=== PATIENT | male | born 1945 | race Caucasian/White ===

== ENCOUNTER 2017-06-21 12:32 | Inpatient (IN) | payer MEDICARE ==
[~2017-06-21] VITALS: Ht 167.6 cm; Wt 77.1 kg
[2017-06-21 13:03] VITALS: BP 103/60; PULSE 84; RESP 18; TEMP 97.6; O2SAT 98
[2017-06-21 15:00] LABS: AUTOMATED NEUTROPHIL # 8.5 TH/MM3 (1.8-7.7); BASOPHIL % 0.3 % (0.0-2.0); EOSINOPHIL % 0.4 % (0.0-4.0); HEMATOCRIT 39.6 % (39.0-51.0); HEMOGLOBIN 13.3 GM/DL (13.0-17.0); LYMPH % 5.9 % (9.0-44.0); LYMPHOCYTE # 0.6 TH/MM3 (1.0-4.8); MEAN CELL VOLUME 99.8 FL (80.0-100.0); MEAN CORPUSCULAR HEMOGLOBIN 33.5 PG (27.0-34.0); MEAN CORPUSCULAR HGB CONC 33.6 % (32.0-36.0); MEAN PLATELET VOLUME 10.1 FL (7.0-11.0); MONO % 9.6 % (0.0-8.0); NEUT % 83.8 % (16.0-70.0); PLATELET COUNT 190 TH/MM3 (150-450); RED BLOOD COUNT 3.96 MIL/MM3 (4.50-5.90); RED CELL DISTRIBUTION WIDTH 18.1 % (11.6-17.2); WHITE BLOOD COUNT 10.2 TH/MM3 (4.0-11.0)
[2017-06-21 15:15] LABS: INTERNATIONAL NORMALIZED RATIO 1.4 RATIO
[2017-06-21 15:25] LABS: ALT (GPT) 32 U/L (12-78); AST (GOT) 38 U/L (15-37); BICARBONATE 36.2 MEQ/L (21.0-32.0); BLOOD UREA NITROGEN 45 MG/DL (7-18); CALCIUM 9.3 MG/DL (8.5-10.1); CHLORIDE 85 MEQ/L (98-107); CREATININE 1.45 MG/DL (0.60-1.30); GLOMERULAR FILTRATION RATE 48 ML/MIN (>89); GLUCOSE,RANDOM 91 MG/DL (74-106); SODIUM (NA) 134 MEQ/L (136-145)
[2017-06-21 15:27] LABS: ALKALINE PHOSPHATASE 141 U/L (45-117); TOTAL BILIRUBIN ADULT 1.3 MG/DL (0.2-1.0); TOTAL PROTEIN 7.1 GM/DL (6.4-8.2)
[2017-06-21] MEDS ORDERED: FUROSEMIDE 100 MG/10 ML VIAL IV PUSH ONE (16:00)
--- NOTE | 2017-06-21 16:07 | PD ---
HPI Chief Complaint: Edema Time Seen by Provider: 15:43 Travel History International Travel<30 days: No Contact w/Intl Traveler<30days: No Traveled to known affect area: No History of Present Illness HPI 71-year-old male arrives from Dr. Higgins's office. The patient has a history of amyloidosis with cardiac involvement. He is orthopneic. He has dyspnea on exertion. Patient takes 80 mg of Lasix daily. He reports compliance with medication regimen. He has no chest pain or shortness of breath. Today the patient went to see Dr. Burrell for chemotherapy however was unable to participate due to shortness of breath and weakness. [facility] Past Medical History Cardiovascular Problems: Yes Chemotherapy: Yes Social History Tobacco Use: No Allergies-Medications (Allergen,Severity, Reaction): Coded Allergies: No Known Allergies (Unverified , 06/21/17) Review of Systems Except as stated in HPI: all other systems reviewed are Neg General / Constitutional: No: Fever Physical Exam Narrative GENERAL: 71-year-old male pleasant well-nourished well-developed Vital Signs Date Time Temp Pulse Resp B/P (MAP) Pulse Ox O2 Delivery O2 Flow Rate FiO2 06/21/17 16:05 81 06/21/17 13:03 97.6 84 18 103/60 (74) 98 SKIN: Warm and dry. HEAD: Atraumatic. Normocephalic. EYES: Pupils equal and round. No scleral icterus. No injection or drainage. ENT: No nasal bleeding or discharge. Mucous membranes pink and moist. NECK: Trachea midline. No JVD. CARDIOVASCULAR: Regular rate and rhythm. RESPIRATORY: Abdomen is distended however soft and nontender. GASTROINTESTINAL: Soft. No focus of tenderness. MUSCULOSKELETAL: There is left greater than right lower extremity pitting edema. No warmth or induration or erythema. NEUROLOGICAL: Awake and alert. No obvious cranial nerve deficits. Motor grossly within normal limits. Five out of 5 muscle strength in the arms and legs. Normal speech. PSYCHIATRIC: Appropriate mood and affect; insight and judgment normal. Data Data Last Documented VS Vital Signs Date Time Temp Pulse Resp B/P (MAP) Pulse Ox O2 Delivery O2 Flow Rate FiO2 06/21/17 16:05 81 06/21/17 13:03 97.6 18 103/60 (74) 98 Orders Orders Complete Blood Count With Diff (06/21/17 13:05) Comprehensive Metabolic Panel (06/21/17 13:05) Act Partial Throm Time (Ptt) (06/21/17 13:05) Prothrombin Time / Inr (Pt) (06/21/17 13:05) Electrocardiogram (06/21/17 ) B-Type Natriuretic Peptide (06/21/17 15:48) Chest, Single Ap (06/21/17 ) Us Leg Venous Doppler Bilat (06/21/17 ) Furosemide Inj (Lasix Inj) (06/21/17 16:00) Admit Order (Ed Use Only) (06/21/17 ) [employer] Screen Watcher / Telemetry JD.Q8H (06/21/17 16:17) Vital Signs (Adult) Q4H (06/21/17 16:17) Diet Npo (06/21/17 Dinner) Activity Bed Rest (06/21/17 16:17) Activity Oob With Assistance (06/21/17 16:17) Labs Laboratory Tests Test 06/21/17 13:41 06/21/17 16:00 White Blood Count 10.2 TH/MM3 Red Blood Count 3.96 MIL/MM3 Hemoglobin 13.3 GM/DL Hematocrit 39.6 % Mean Corpuscular Volume 99.8 FL Mean Corpuscular Hemoglobin 33.5 PG Mean Corpuscular Hemoglobin Concent 33.6 % Red Cell Distribution Width 18.1 % Platelet Count 190 TH/MM3 Mean Platelet Volume 10.1 FL Neutrophils (%) (Auto) 83.8 % Lymphocytes (%) (Auto) 5.9 % Monocytes (%) (Auto) 9.6 % Eosinophils (%) (Auto) 0.4 % Basophils (%) (Auto) 0.3 % Neutrophils # (Auto) 8.5 TH/MM3 Lymphocytes # (Auto) 0.6 TH/MM3 Monocytes # (Auto) 1.0 TH/MM3 Eosinophils # (Auto) 0.0 TH/MM3 Basophils # (Auto) 0.0 TH/MM3 CBC Comment DIFF FINAL Differential Comment Prothrombin Time 14.0 SEC Prothromb Time International Ratio 1.4 RATIO Activated Partial Thromboplast Time 26.1 SEC Blood Urea Nitrogen 45 MG/DL Creatinine 1.45 MG/DL Random Glucose 91 MG/DL Total Protein 7.1 GM/DL Albumin 4.0 GM/DL Calcium Level 9.3 MG/DL Alkaline Phosphatase 141 U/L Aspartate Amino Transf (AST/SGOT) 38 U/L Alanine Aminotransferase (ALT/SGPT) 32 U/L Total Bilirubin 1.3 MG/DL Sodium Level 134 MEQ/L Potassium Level 3.2 MEQ/L Chloride Level 85 MEQ/L Carbon Dioxide Level 36.2 MEQ/L Anion Gap 13 MEQ/L Estimat Glomerular Filtration Rate 48 ML/MIN B-Type Natriuretic Peptide 3801 PG/ML MDM Medical Decision Making Medical Screen Exam Complete: Yes Emergency Medical Condition: Yes Medical Record Reviewed: Yes Differential Diagnosis Volume overload, edema, renal failure Narrative Course CBC & BMP Diagram 06/21/17 13:41 Total Protein 7.1, Albumin 4.0, Calcium Level 9.3, Alkaline Phosphatase 141 H, Aspartate Amino Transf (AST/SGOT) 38 H, Alanine Aminotransferase (ALT/SGPT) 32, Total Bilirubin 1.3 H 80 mg IV Lasix started here. There is asymmetric edema left lower leg. Venous ultrasound added on. Case discussed with Dr. Hassan. Diagnosis Primary Impression: Cardiac amyloidosis Additional Impressions: Orthopnea Dyspnea on exertion PND (paroxysmal nocturnal dyspnea) Admitting Information Admitting Physician Requests: Admit Warren Bradford MD June 21, 2017 16:07
[2017-06-21] MEDS ORDERED: NALOXONE HCL 0.4 MG/ML AMP IV PUSH PRN (17:00)
[2017-06-21] MEDS ORDERED: MAGNESIUM HYDROXIDE SUSP 30 ML CUP PO PRN (17:00)
[2017-06-21] MEDS ORDERED: BISACODYL 10 MG SUPP RECTAL PRN (17:00)
[2017-06-21] MEDS ORDERED: LACTULOSE SYRUP 20 GM/30 ML CUP PO PRN (17:00)
[2017-06-21] MEDS ORDERED: SODIUM CHLORIDE 0.9% FLUSH 10 ML FLUSH IV FLUSH PRN (17:00)
[2017-06-21] MEDS ORDERED: ACETAMINOPHEN 325 MG TAB PO PRN (17:00)
[2017-06-21] MEDS ORDERED: SENNOSIDES 8.6 MG TAB PO PRN (17:00)
--- NOTE | 2017-06-21 17:10 | RADRPT ---
EXAM DATE/TIME: 06/21/2017 15:52 [facility] COMPARISON: No previous studies available for comparison. INDICATIONS : Short of breath. MEDICAL HISTORY : Amyloidosis. SURGICAL HISTORY : CABG. ENCOUNTER: Initial ACUITY: 1 day PAIN SCORE: 0/10 LOCATION: Bilateral chest FINDINGS: Previous sternotomy. Right effusion with basilar consolidation. Left lung clear. No pneumothorax. CONCLUSION: 1. Previous sternotomy with right basilar atelectasis and right pleural effusion. No prior study for comparison. Lei Glover MD on June 21, 2017 at 17:07 Board Certified Radiologist. This report was verified electronically.
[2017-06-21 17:31] VITALS: BP 119/71; PULSE 73; RESP 18; O2SAT 100
--- NOTE | 2017-06-21 17:46 | HHI.HP ---
[facility] Zulay Zaragoza MD Admission Diagnosis Ascites; Edema; PND/Orthopnea Diagnoses: Chief Complaint: Edema, Increasing SOB Travel History International Travel<30 Days: No Contact w/Intl Traveler <30 Da: No Traveled to Known Affected Are: No History of Present Illness Patient is a 71-year-old male with known primary history of amyloidosis, Aortic valve replacement, HTN, HLD, CHF who came into the hospital as advised by Dr. Galindo secondary to increasing shortness of breath and edema. Patient states that he has noticed that he has increasing bilateral lower extremity edema left greater than the right. States that he has been an ongoing thing of increasing shortness of breath also for the past 2 weeks. Complains of generalized weakness, fatigue. States that his bilateral lower extremity edema usually comes down which is taking medication however this time he states it remains the same. States since September last year he has been going downhill as to his health issue. Patient also complains of abdominal bloating and is more concerned about it compared to his bilateral lower extremity swelling. Otherwise, denies any cough. Denies pain or discomfort, denies chest pain, palpitations, headaches, fevers, chills, nausea, vomiting, diarrhea. Denies any constipation, abdominal cramping, abdominal pain, hematuria, dysuria. Review of Systems Except as stated in HPI: all other systems reviewed are Neg Past Family Social History Past Medical History CAD CVD CHF, systolic Ascites HTN HLD Myeloma II Past Surgical History Cataract removal Coronary stent placement, [address] Christina Bilateral feet surgery Tonsillectomy Aortic valve replacement in 2017, Dr. Matias Grubbs secondary to valvular dysfunction Allergies: Coded Allergies: No Known Allergies (Unverified , 06/21/17) Active Ordered Medications Current Medications Medications (Trade) Dose Ordered Sig/Rupali Route Start Time Stop Time Status Last Admin (NS Flush) 2 ml UNSCH PRN IV FLUSH 06/21/17 17:00 UNV (NS Flush) 2 ml BID IV FLUSH 06/21/17 21:00 UNV (Tylenol) 650 mg Q4H PRN PO 5/10/18 17:00 UNV (Heparin Inj) 5,000 units Q12H SQ 06/21/17 17:00 UNV (Narcan Inj) 0.4 mg UNSCH PRN IV PUSH 06/21/17 17:00 UNV (Jesika-Colace) 1 tab BID PO 06/21/17 21:00 UNV (Milk Of Magnesia Liq) 30 ml Q12H PRN PO 06/21/17 17:00 UNV (Senokot) 17.2 mg Q12H PRN PO 06/21/17 17:00 UNV (Dulcolax Supp) 10 mg DAILY PRN RECTAL 06/21/17 17:00 UNV (Lactulose Liq) 30 ml DAILY PRN PO 06/21/17 17:00 UNV Family History Mother lived to be in in her 90s Father of alcoholism Social History Patient lives by himself. recently . Denies alcohol use Denies tobacco use, former smoker quit about approximately 30 years ago, smoked a pack per day 27 years Denies illicit drug use Physical Exam Vital Signs Vital Signs Date Time Temp Pulse Resp B/P (MAP) Pulse Ox O2 Delivery O2 Flow Rate FiO2 06/21/17 16:05 81 06/21/17 13:03 97.6 84 18 103/60 (74) 98 Physical Exam GENERAL: This is a thin appearing, well-developed patient, in no apparent distress. SKIN: No rashes, ecchymoses or lesions. Cool and dry. HEAD: Atraumatic. Normocephalic. No temporal or scalp tenderness. EYES: Pupils equal round and reactive. Extraocular motions intact. No scleral icterus. No injection or drainage. ENT: Nose without bleeding. Throat without erythema. Uvula midline. Airway patent. NECK: Trachea midline. CARDIOVASCULAR: Regular rate and rhythm with 2/6 murmurs. No gallops, or rubs. RESPIRATORY: Diminished left middle and lower lobe. No wheezes, rales, or rhonchi. GASTROINTESTINAL: Abdomen soft, non-tender, distended -ascites. Bowel sounds active 4. MUSCULOSKELETAL: Extremities without clubbing, cyanosis. Bilateral lower extremity edema +3 left greater than right. NEUROLOGICAL: Awake and alert. Cranial nerves II through XII intact. Motor and sensory grossly within normal limits. Normal speech. Laboratory Laboratory Tests Test 5/10/18 13:41 06/21/17 16:00 White Blood Count 10.2 Red Blood Count 3.96 Hemoglobin 13.3 Hematocrit 39.6 Mean Corpuscular Volume 99.8 Mean Corpuscular Hemoglobin 33.5 Mean Corpuscular Hemoglobin Concent 33.6 Red Cell Distribution Width 18.1 Platelet Count 190 Mean Platelet Volume 10.1 Neutrophils (%) (Auto) 83.8 Lymphocytes (%) (Auto) 5.9 Monocytes (%) (Auto) 9.6 Eosinophils (%) (Auto) 0.4 Basophils (%) (Auto) 0.3 Neutrophils # (Auto) 8.5 Lymphocytes # (Auto) 0.6 Monocytes # (Auto) 1.0 Eosinophils # (Auto) 0.0 Basophils # (Auto) 0.0 CBC Comment DIFF FINAL Differential Comment Prothrombin Time 14.0 Prothromb Time International Ratio 1.4 Activated Partial Thromboplast Time 26.1 Blood Urea Nitrogen 45 Creatinine 1.45 Random Glucose 91 Total Protein 7.1 Albumin 4.0 Calcium Level 9.3 Alkaline Phosphatase 141 Aspartate Amino Transf (AST/SGOT) 38 Alanine Aminotransferase (ALT/SGPT) 32 Total Bilirubin 1.3 Sodium Level 134 Potassium Level 3.2 Chloride Level 85 Carbon Dioxide Level 36.2 Anion Gap 13 Estimat Glomerular Filtration Rate 48 Result Diagram: 06/21/17 1341 06/21/171340 Caprini VTE Risk Assessment Caprini VTE Risk Assessment: Mod/High Risk (score >= 2) Caprini Risk Assessment Model Point Value = 1 Point Value = 2 Point Value = 3 Point Value = 5 Age 41-60 Minor surgery BMI > 25 kg/m2 Swollen legs Varicose veins or History of unexplained or recurrent spontaneous Oral contraceptives or hormone replacement Sepsis (< 1 month) Serious lung disease, including pneumonia (< 1 month) Abnormal pulmonary function Acute myocardial infarction Congestive heart failure (< 1 month) History of inflammatory bowel disease Medical patient at bed rest Age 61-74 Arthroscopic surgery Major open surgery (> 45 min) Laparoscopic surgery (> 45 min) Malignancy Confined to bed (> 72 hours) Immobilizing plaster cast Central venous access Age >= 75 History of VTE Family history of VTE Factor V Leiden Prothrombin [id number] Lupus anticoagulant Anticardiolipin antibodies Elevated serum homocysteine Heparin-induced thrombocytopenia Other congenital or acquired thrombophilia Stroke (< 1 month) Elective arthroplasty Hip, pelvis, or leg fracture Acute spinal cord injury (< 1 month) Prophylaxis Regimen Total Risk Factor Score Risk Level Prophylaxis Regimen 0-1 Low Early ambulation 2 Moderate Order ONE of the following: *Sequential Compression Device (SCD) *Heparin 5000 units SQ BID 3-4 Higher Order ONE of the following medications: *Heparin 5000 units SQ TID *Enoxaparin/Lovenox 40 mg SQ daily (WT < 150 kg, CrCl > 30 mL/min) *Enoxaparin/Lovenox 30 mg SQ daily (WT < 150 kg, CrCl > 10-29 mL/min) *Enoxaparin/Lovenox 30 mg SQ BID (WT < 150 kg, CrCl > 30 mL/min) AND/OR *Sequential Compression Device (SCD) 5 or more Highest Order ONE of the following medications: *Heparin 5000 units SQ TID (Preferred with Epidurals) *Enoxaparin/Lovenox 40 mg SQ daily (WT < 150 kg, CrCl > 30 mL/min) *Enoxaparin/Lovenox 30 mg SQ daily (WT < 150 kg, CrCl > 10-29 mL/min) *Enoxaparin/Lovenox 30 mg SQ BID (WT < 150 kg, CrCl > 30 mL/min) AND *Sequential Compression Device (SCD) Assessment and Plan Problem List: (1) CHF (congestive heart failure) ICD Code: I50.9 - Heart failure, unspecified (2) Cardiac amyloidosis ICD Code: E85.4 - Organ-limited amyloidosis; I43 - Cardiomyopathy in diseases classified elsewhere Status: Acute (3) Dyspnea on exertion ICD Code: R06.09 - Other forms of dyspnea Status: Acute (4) PND (paroxysmal nocturnal dyspnea) ICD Code: R06.00 - Dyspnea, unspecified; I43 - Cardiomyopathy in diseases classified elsewhere Status: Acute (5) Orthopnea ICD Code: R06.01 - Orthopnea Status: Acute Assessment and Plan Patient is a 71-year-old male with known primary history of amyloidosis, Aortic valve replacement, HTN, HLD, CHF who came into the hospital as advised by Dr. Galindo secondary to increasing shortness of breath and edema. Congestive heart failure, systolic With exacerbation History of amyloidosis -Chest x-ray showed right pleural effusion, reviewed by me and Dr. Hassan -BNP 3801 -Increasing shortness of breath and dyspnea on exertion with associated orthopnea -Lasix 80 mg IV given in the ED -We will continue Lasix IV -Plan for thoracentesis -Follow-up labs -Consult cardiology, patient seen Dr. Christina -Last echo possibly done 11/2016 showed EF 47%. Repeat ECHO. -Fluid restriction Hypokalemia, mild Hyponatremia, mild -Monitor labs Acute kidney injury on chronic kidney disease stage III -Baseline1.2-1.3 -Mildly elevated creatinine -Avoid nephrotoxic -Monitor renal indicis Amyloidosis -Patient is under the care of Dr. Galindo, and outpatient -Consult Dr. Higgins if warranted Ascites Abdominal bloating -Hx ascites -Lasix IV, metolazone -May benefit with paracentesis if warranted. -US Abdomen Transaminitis -Possibly drug-induced -Monitor liver enzymes DVT prop heparin SQ Code Status Full Code Discussed Condition With Patient, Dr. Hassan Physician Certification 2 Midnight Certification Type: Admission for Inpatient Services Order for Inpatient Services The services are ordered in accordance with Medicare regulations or non- Medicare payer requirements, as applicable. In the case of services not specified as inpatient-only, they are appropriately provided as inpatient services in accordance with the 2-midnight benchmark. Estimated LOS (days): 2 days is the estimated time the patient will need to remain in the hospital, assuming treatment plan goals are met and no additional complications. Post-Hospital Plan: Home Health Jose Wang June 21, 2017 17:46
--- NOTE | 2017-06-21 17:59 | RADRPT ---
EXAM DATE/TIME: 06/21/2017 17:05 [facility] COMPARISON: No previous studies available for comparison. INDICATIONS : Increasing bilateral lower extremity edema x 2 weeks. MEDICAL HISTORY : Congestive heart failure. Hypertension. Hypercholesterolemia. Amyloidosis. Myeloma II. Ascites. SURGICAL HISTORY : Coronary artery stent.Tonsillectomy. Aortic valve replacement 2017. Cataract removal. ENCOUNTER: Initial ACUITY: 1 week PAIN SCORE: 1/10 LOCATION: Bilateral legs. TECHNIQUE: Venous ultrasound of the left and right leg was performed from the inguinal ligament to the proximal calf. Real-time, color Doppler and spectral tracing, compression and augmentation techniques were us ed. FINDINGS: RIGHT LEG: There is normal compressibility of the deep venous system from the inguinal region to the proximal ca lf. No echogenic clot is seen in the lumen of the common femoral, femoral, popliteal, and posterior tibial veins. There is a normal response of the venous system to proximal and distal augmentation an d respiration. LEFT LEG: There is normal compressibility of the deep venous system from the inguinal region to the proximal ca lf. No echogenic clot is seen in the lumen of the common femoral, femoral, popliteal, and posterior tibial veins. There is a normal response of the venous system to proximal and distal augmentation an d respiration. CONCLUSION: Normal examination. Lei Glover MD on June 21, 2017 at 17:56 Board Certified Radiologist. This report was verified electronically.
[2017-06-21] MEDS: FUROSEMIDE 40 MG/4 ML VIAL IV PUSH SCH (18:00)
[2017-06-21] MEDS ORDERED: POTASSIUM CHLORIDE 20 MEQ CONTROLLED RELEASE TAB PO ONE (18:00)
[2017-06-21] MEDS ORDERED: SACU1TAB PO (18:33)
[2017-06-21] MEDS ORDERED: CARV3.12 PO (18:33)
[2017-06-21] MEDS ORDERED: TORS20TA PO (18:33)
[2017-06-21] MEDS ORDERED: BRIL90TA PO (18:33)
[2017-06-21] MEDS ORDERED: ASPI-516 CHEW (18:33)
[2017-06-21] MEDS ORDERED: POTA10CA PO (18:33)
[2017-06-21] MEDS: DOCUSATE SODIUM 50 MG/SENNA 8.6 MG TAB PO SCH (21:00)
[2017-06-21 21:40] VITALS: PULSE 79
[2017-06-21] MEDS: SODIUM CHLORIDE 0.9% FLUSH 10 ML FLUSH IV FLUSH SCH (21:45)
[2017-06-21] MEDS: HEPARIN SODIUM - SQ 10,000 UNITS/ML VIAL SQ SCH (21:45)
[2017-06-22] VITALS (10 sets, daily range): BP systolic 96–131; BP diastolic 56–73; PULSE 77–93; RESP 16–20; TEMP 96–98.1; O2SAT 94–97
[2017-06-22 07:09] LABS: AUTOMATED NEUTROPHIL # 7.8 TH/MM3 (1.8-7.7); BASOPHIL % 0.5 % (0.0-2.0); EOSINOPHIL # 0.1 TH/MM3 (0-0.4); EOSINOPHIL % 0.6 % (0.0-4.0); HEMATOCRIT 37.8 % (39.0-51.0); HEMOGLOBIN 12.9 GM/DL (13.0-17.0); LYMPH % 6.6 % (9.0-44.0); LYMPHOCYTE # 0.6 TH/MM3 (1.0-4.8); MEAN CELL VOLUME 98.5 FL (80.0-100.0); MEAN CORPUSCULAR HEMOGLOBIN 33.5 PG (27.0-34.0); MEAN PLATELET VOLUME 9.9 FL (7.0-11.0); MONO % 10.1 % (0.0-8.0); NEUT % 82.2 % (16.0-70.0); PLATELET COUNT 199 TH/MM3 (150-450); RED BLOOD COUNT 3.84 MIL/MM3 (4.50-5.90); WHITE BLOOD COUNT 9.5 TH/MM3 (4.0-11.0)
[2017-06-22] MEDS: SODIUM CHLORIDE 0.9% FLUSH 10 ML FLUSH IV FLUSH SCH ×2 (07:21→21:15)
[2017-06-22 07:46] LABS: ALBUMIN 3.4 GM/DL (3.4-5.0); ALKALINE PHOSPHATASE 115 U/L (45-117); ALT (GPT) 26 U/L (12-78); AST (GOT) 35 U/L (15-37); BICARBONATE 37.3 MEQ/L (21.0-32.0); BLOOD UREA NITROGEN 44 MG/DL (7-18); CALCIUM 9.1 MG/DL (8.5-10.1); CHLORIDE 87 MEQ/L (98-107); CREATININE 1.38 MG/DL (0.60-1.30); GLOMERULAR FILTRATION RATE 51 ML/MIN (>89); GLUCOSE,RANDOM 82 MG/DL (74-106); SODIUM (NA) 134 MEQ/L (136-145); TOTAL BILIRUBIN ADULT 1.3 MG/DL (0.2-1.0); TOTAL PROTEIN 6.1 GM/DL (6.4-8.2)
[2017-06-22] MEDS: HEPARIN SODIUM - SQ 10,000 UNITS/ML VIAL SQ SCH ×2 (09:00→21:14)
--- NOTE | 2017-06-22 10:32 | RADRPT ---
EXAM DATE/TIME: 06/22/2017 09:58 [facility] COMPARISON: No previous studies available for comparison. INDICATIONS : S/P Thoracentesis. MEDICAL HISTORY : Amyloidosis. SURGICAL HISTORY : CABG. ENCOUNTER: Subsequent ACUITY: 2 days PAIN SCORE: 0/10 LOCATION: Bilateral chest FINDINGS: Following thoracentesis there is no pneumothorax. Sternal wires from previous bypass noted. Mild co mpensated cardiomegaly. Minimal bibasilar parenchymal changes. CONCLUSION: Status post thoracentesis. No pneumothorax. George Laughlin MD FACR on June 22, 2017 at 10:28 Board Certified Radiologist. This report was verified electronically.
--- NOTE | 2017-06-22 10:50 | RADRPT ---
EXAM DATE/TIME: 06/22/2017 09:51 [facility] COMPARISON: No previous studies available for comparison. INDICATIONS : Increased lab values. MEDICAL HISTORY : CHF. HTN. Amyloidosis. SURGICAL HISTORY : Aortic valve replacement. Bilateral foot surgery. Coronary stent. Tonsillectomy. ENCOUNTER: Initial ACUITY: 1 day PAIN SCORE: 0/10 LOCATION: Bilateral upper quadrant MEASUREMENTS: LIVER: 16.3 cm length COMMON DUCT: 4 mm RIGHT KIDNEY: 10.8 x 5.7 x 5.8 cm SPLEEN: 8.9 cm length FINDINGS: Pancreas not well-visualized. Mild ascites around the liver and spleen. Shadowing gallstone in gallbl adder neck measuring up to 1 cm in diameter. Right kidney unremarkable. CONCLUSION: 1. Gallstone in gallbladder neck measuring up to about a centimeter in diameter. No biliary ductal di latation. Mild ascites. Lei Glover MD on June 22, 2017 at 10:42 Board Certified Radiologist. This report was verified electronically.
--- NOTE | 2017-06-22 11:10 | RADRPT ---
EXAM DATE/TIME: 06/22/2017 08:30 [facility] COMPARISON: No previous studies available for comparison. INDICATIONS : Right pleural effusion. MEDICAL HISTORY : Congestive heart failure. Hypertension. Hypercholesterolemia. Amyloidosis. Coronary artery disease. Cerebrovascular disease. Myeloma II. SURGICAL HISTORY : Tonsillectomy. Coronary artery stent. Aortic valve replacement 2017. Cataract removal. ENCOUNTER: Initial ACUITY: 1 day PAIN SCORE: 2/10 LOCATION: Right chest FLUID: Total volume of 300 cc of cloudy, red fluid was removed. Fluid was sent to lab for ordered studies. TECHNIQUE: 1. Ultrasound guidance for thoracentesis. 2. Thoracentesis. The risks, benefits, and alternatives to ultrasound guided thoracentesis were explained to the patien t in lay simple terms, including the risk of bleeding and infection. Written and verbal informed con sent was obtained. Appropriate area for thoracentesis was marked under ultrasound guidance with the patient in the uprig ht position. Overlying skin was prepped and draped in the usual sterile fashion and with local anest hetic, a dermatotomy was made with an 11 blade scalpel. A 6 [place] thoracentesis catheter was placed in the pleural space and fluid was removed. Catheter was then removed and a sterile dressing applie d. There were no immediate complications. The patient tolerated the procedure well and the left the ultrasound suite in stable condition. Chest radiograph is to be obtained. CONCLUSION: Uncomplicated ultrasound guided thoracentesis. Fluid was sent for ordered studies. George Laughlin MD FACR on June 22, 2017 at 11:06 Board Certified Radiologist. This report was verified electronically.
[2017-06-22] MEDS: FUROSEMIDE 40 MG/4 ML VIAL IV PUSH SCH ×2 (11:35→18:02)
[2017-06-22] MEDS: DOCUSATE SODIUM 50 MG/SENNA 8.6 MG TAB PO SCH ×2 (11:36→21:14)
[2017-06-22] MEDS: METOLAZONE 2.5 MG TAB PO SCH (11:37)
[2017-06-22 11:52] LABS: TOTAL PROTEIN,PLEURAL FLUID 2.2 GM/DL
[2017-06-22] MEDS ORDERED: LIDOCAINE HCL 1% 20 ML VIAL ONE (12:21)
[2017-06-22 12:53] LABS: PLEURAL FLUID HISTIOCYTES 2 %; PLEURAL FLUID LYMPHS 83 %; PLEURAL FLUID MONOS 2 %; PLEURAL FLUID POLYS (SEGS) 13 %; PLEURAL FLUID RBC 136131 /MM3 (0-0); PLEURAL FLUID WBC 400 /MM3 (0-10)
--- NOTE | 2017-06-22 12:56 | HHI.PR ---
Subjective Remarks Nursing denies any deterioration since last night. Patient says he is breathing much better after the procedure but says his breathing is still not returned to baseline. says his abd distention has also improved Objective Vital Signs Date Time Temp Pulse Resp B/P (MAP) Pulse Ox O2 Delivery O2 Flow Rate FiO2 06/22/17 08:00 97.3 77 18 107/64 (78) 95 06/22/17 04:00 97.9 79 18 96/56 (69) 96 06/22/17 04:00 78 06/22/17 00:45 96 21 06/22/17 00:00 87 06/22/17 00:00 96.0 80 20 104/61 (75) 94 06/21/17 21:40 79 06/21/17 20:41 06/21/17 17:31 73 18 119/71 (87) 100 Room Air 06/21/17 16:05 81 06/21/17 13:03 97.6 84 18 103/60 (74) 98 I/O 06/21/17 06/21/17 06/21/17 06/22/17 06/22/17 06/22/17 06:59 14:59 22:59 06:59 14:59 22:59 Intake Total 0 ml Output Total 400 ml Balance -400 ml 0 ml Intake Oral 0 ml Output Urine Total 400 ml # Voids 2 2 # Bowel Movements 0 Result Diagram: 06/22/17 0655 06/22/17 0655 Objective Remarks Moderate aeration in bilateral lung [place], no crackles heard 4 out of 6 ejection murmur Mild bilateral lower extremity edema Has gauze over postthoracentesis dressing over the right lung field posteriorly Abdomen appears soft, nondistended A/P Assessment and Plan Patient is a 71-year-old male with known primary history of amyloidosis, Aortic valve replacement, HTN, HLD, CHF who came into the hospital as advised by Dr. Galindo secondary to increasing shortness of breath and edema. Shortness of breath -Likely multifactorial from acute systolic congestive heart failure as well as pleural effusion possibly from amyloidosis and CHF -See treatment below Acute CHF systolic w/ CAD - continue Lasix IV and metolazone, continue home Coreg - Repeat ECHO pending - Fluid restriction -Cardiology consultation pending, will defer decision to cardiology to restart home Entresto and brillinta given CKD and possible paracentesis, respectively Hypokalemia, mild Hyponatremia, mild -Monitor labs Acute kidney injury on chronic kidney disease stage III -Baseline1.2-1.3 -Mildly elevated creatinine -Avoid nephrotoxic -Monitor renal indicis Amyloidosis -Appreciate oncology recs Ascites Abdominal bloating -Hx ascites -Lasix IV, metolazone -May benefit with paracentesis if warranted. -US Abdomen Transaminitis -Possibly drug-induced -Monitor liver enzymes Bowen Fernandez MD June 22, 2017 12:56
[2017-06-22] MEDS ORDERED: POTASSIUM CHLORIDE 25 MEQ EFFERVESCENT TAB PO ONE (13:00)
[2017-06-22] MEDS ORDERED: MAGNESIUM SULFATE 1 GM PREMIX 100 ML IV PRN (13:15)
--- NOTE | 2017-06-22 13:54 | MB ---
cc: Darian Monge MD DATE: 06/22/2017 REASON FOR CONSULTATION: For treatment and evaluation of congestive heart failure. HISTORY OF PRESENT ILLNESS: Lei Parham is a 71-year-old man, well known to my colleague, Dr. Christina, who is admitted now with decompensated CHF. The patient is known to have heart disease. He had a bovine pericardial aortic valve replacement on 05/08/2016. His last cardiac catheterization was performed at [facility] on 01/30/2017. At that time, he had 40% stenosis of an ostial diagonal branch. The LAD itself had only luminal irregularities. The ramus intermediate branch was normal. Circumflex artery had a 70-90% stenosis at the takeoff of a small obtuse marginal branch. The remainder of the circumflex had minimal luminal irregularities. The right coronary artery had diffuse disease with 40% stenosis proximally and 30% stenosis near the origin of the posterior descending artery branch. At that time, he had stenting of the circumflex artery with a 2.5 x 14 mm Resolute stent. He was on aspirin and Brilinta following that. 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 He was hospitalized for decompensated CHF 05/17/2017-05/21/2017. He has been on furosemide 80 mg p.o. b.i.d., says that on this amount of diuretic he urinates frequently. Denies any dietary indiscretion insofar as he does not add salt to his food. He seems somewhat surprised when I kept emphasizing if he eats any foods that contain salt, but it does not sound like his diet is high in salt. He has had a 15 pound weight gain over 2 weeks. With that he has had swelling in his feet, swelling of the stomach and extreme tiredness. I asked him if he had communicated the 15-pound weight gain to Dr. Christina and he told me no, but that he had been in touch with his oncologist, Dr. Higgins. Dr. Higgins evaluated him and sent him to the hospital and he subsequently has been admitted. It appears that he has now already undergone a thoracentesis which was performed this morning with 300 mL of cloudy red fluid removed. He is also on IV Lasix and Zaroxolyn and his shortness of breath is improving. PAST MEDICAL HISTORY: Includes: 1. A bovine prosthetic aortic valve for aortic stenosis, cardiac amyloidosis, cardiomyopathy. His last echo was 01/25/2017. At that time, his aortic valve had an 11 mm mean gradient. Left ventricle had an ejection fraction of 35%. There was moderate to severe mitral regurgitation, mild tricuspid regurgitation with pulmonary hypertension, estimated right ventricular systolic pressure 58 mm and mild to moderate pulmonic regurgitation. This was a significant decline from his previous studies. 2. Carotid artery disease, which was mild on ultrasound last checked. 3. Hyperlipidemia. 4. Hypertension. 5. Mitral regurgitation, which has been moderate to severe. PAST SURGICAL HISTORY: Includes: 1. Ankle surgery. 2. Aortic valve replacement. 3. Cataract surgery. 4. Left carotid endarterectomy. 5. Lumbar disk surgery. 6. Tonsillectomy. 7. Surgery on both feet MEDICATIONS: Include: 1. Aspirin 81 mg daily. 2. Brilinta 90 mg b.i.d. 3. He is on 40 Lasix IV b.i.d. 4. Metolazone daily. ALLERGIES: SHRIMP. FAMILY HISTORY: Positive for COPD and alcoholism. SOCIAL HISTORY: He smoked from age 28 to age 38, 1 pack a day. He is . REVIEW OF SYSTEMS: Notable for generalized weakness, loss of appetite, constipation, abdominal pain, difficulty sleeping. PHYSICAL EXAMINATION: GENERAL: Well-developed, well-nourished white male. He appears perhaps mildly depressed. VITAL SIGNS: Charted. HEENT: Unremarkable. NECK: Shows mild JVD. CHEST: Shows absent breath sounds and dullness at the right base, even post-tap. CARDIAC: Shows a displaced PMI with normal first and second heart sounds. Grade 2/6 mitral regurgitation murmur at the apex with a soft S3. ABDOMEN: Soft but appears to have ascites. EXTREMITIES: Reveal 2+ lower extremity edema. NEUROLOGIC: He appears alert and oriented. Chest x-ray at 10 a.m. this morning, which is post-tap shows at least a mild right pleural effusion post-tap. LABORATORY DATA: Initial CBC is unremarkable. BUN is 44, the creatinine 1.38 this morning. Potassium was low yesterday at 3.2 and still low today at 3.3. Magnesium has not been checked. IMPRESSION: 1. Qgtqf-lj-ngbgbin systolic congestive heart failure. 2. 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 3. Stable aortic valve replacement. 4. Stable coronary artery disease. 5. Mild carotid artery disease. 6. Hypokalemia secondary to diuretics. RECOMMENDATIONS: 1. Increase potassium to 30 t.i.d. 2. Check magnesium level in the morning. Replete that as necessary. 3. Continue diuresis. 4. The patient is currently not on an АНДРЕЙ inhibitor and beta irma because the blood pressure has been too low to permit this. However, during the hospital stay, we will see how his blood pressure responds and we might try again to add that but it has been contraindicated due to low blood pressures. MD DAQUAN Barajas/BHAVESH , 01:15 PM , 01:52 PM
[2017-06-22] MEDS: CARVEDILOL 3.125 MG TAB PO SCH ×2 (14:47→21:14)
[2017-06-22] MEDS: ASPIRIN 81 MG CHEW TAB CHEW SCH (14:47)
--- NOTE | 2017-06-22 17:26 | ECHRPT ---
Indication: Heart failure, unspecified CONCLUSIONS The left ventricular systolic function is mdlhwjtz-zq-jrbpadm reduced with an estimated ejection fra ction in the range of 30-35%. There is assymetric septal hypertrophy. The left atrial size is moderately dilated. Moderate mitral valve regurgitation. There is moderate tricuspid regurgitation. The estimated pulmonary arterial pressure is 52.8 mmHg. BP: / HR: Rhythm: MEASUREMENTS (Male / Female) Normal Values Technical Quality:Good 2D ECHO LV Diastolic Diameter PLAX 4.4 cm 4.2 - 5.9 / 3.9 - 5.3 cm LV Systolic Diameter PLAX 3.8 cm IVS Diastolic Thickness 1.9 cm 0.6 - 1.0 / 0.6 - 0.9 cm LVPW Diastolic Thickness 1.0 cm 0.6 - 1.0 / 0.6 - 0.9 cm LV Relative Wall Thickness 0.7 RV Internal Dim ED PLAX 3.0 cm LVOT Diameter 2.0 cm M-MODE Aortic Root Diameter MM 2.8 cm LA Systolic Diameter MM 5.1 cm LA Ao Ratio MM 1.8 AV Cusp Separation MM 1.2 cm DOPPLER AV Peak Velocity 208.0 cm/s AV Peak Gradient 17.3 mmHg AV Mean Gradient 9.0 mmHg AV Velocity Time Integral 30.5 cm LVOT Peak Velocity 86.5 cm/s LVOT Peak Gradient 3.0 mmHg LVOT Velocity Time Integral 14.5 cm AV Area Cont Eq vti 1.5 cm AV Area Cont Eq pk 1.3 cm Mitral E Point Velocity 170.0 cm/s Mitral A Point Velocity 56.8 cm/s Mitral E to A Ratio 3.0 TR Peak Velocity 327.0 cm/s TR Peak Gradient 42.8 mmHg Right Atrial Pressure 10.0 mmHg Pulmonary Artery Systolic Pressu 52.8 mmHg Right Ventricular Systolic Press 52.8 mmHg FINDINGS LEFT VENTRICLE The left ventricular systolic function is vnssracl-se-nuaeosy reduced with an estimated ejection fra ction in the range of 30-35%. Diffusely thickened left vetricle. RIGHT VENTRICLE The right ventricular size is normal. LEFT ATRIUM The left atrial size is moderately dilated. RIGHT ATRIUM The right atrial size is normal. ATRIAL SEPTUM Normal atrial septal thickness without atrial level shunting by limited color doppler interrogation. AORTA The aortic root and proximal ascending aorta are not well visualized. MITRAL VALVE Moderate mitral valve regurgitation. AORTIC VALVE No aortic valve regurgitation. Aortic valve area is 1.5 cm. Aortic valve mean gradient is 9 mmHg. Bovine Ao valve TRICUSPID VALVE There is moderate tricuspid regurgitation. The estimated pulmonary arterial pressure is 52.8 mmHg. PULMONARY VALVE Trivial pulmonary valve regurgitation. PERICARDIUM No pericardial effusion. Darian Monge MD (Electronically Signed) Final Date:22 Jun 2017 17:25
[2017-06-22] MEDS: POTASSIUM CHLORIDE 10 MEQ CONTROLLED RELEASE TAB PO SCH (18:03)
[2017-06-23] VITALS (14 sets, daily range): BP systolic 91–122; BP diastolic 57–70; PULSE 74–91; RESP 18–20; TEMP 97.2–98.1; O2SAT 95–99
[2017-06-23] MEDS ORDERED: diphenhydrAMINE HCL 25 MG CAP PO ONE (00:45)
[2017-06-23] MEDS ORDERED: RESP: ALBUTEROL 2.5 MG/IPRATROPIUM 0.5 MG NEB (PRN) NEB (00:45)
[2017-06-23] MEDS: RESP: ALBUTEROL 2.5 MG/IPRATROPIUM 0.5 MG NEB (SCH) NEB ×5 (01:13→20:11)
[2017-06-23 05:33] LABS: BICARBONATE 38.4 MEQ/L (21.0-32.0); CALCIUM 8.5 MG/DL (8.5-10.1); CREATININE 1.87 MG/DL (0.60-1.30)
--- NOTE | 2017-06-23 08:46 | EKG ---
Date Performed: 06/21/2017 Time Performed: 13:35:23 PTAGE: 71 years EKG: Sinus rhythm MARKED LEFT AXIS DEVIATION MODERATE INTRAVENTRICULAR CONDUCTION DELAY NONSPECIFIC ST & T-WAVE ABNORM ALITY ABNORMAL ECG PREVIOUS TRACING : 06/20/2017 10.10 DOCTOR: Dale Vásquez Interpretating Date/Time 06/23/2017 08:41:58
[2017-06-23] MEDS ORDERED: POTASSIUM CHLORIDE 25 MEQ EFFERVESCENT TAB PO SCH (09:00)
[2017-06-23] MEDS: METOLAZONE 2.5 MG TAB PO SCH (10:02)
[2017-06-23] MEDS: CARVEDILOL 3.125 MG TAB PO SCH ×2 (10:02→20:47)
[2017-06-23] MEDS: ASPIRIN 81 MG CHEW TAB CHEW SCH (10:02)
[2017-06-23] MEDS: DOCUSATE SODIUM 50 MG/SENNA 8.6 MG TAB PO SCH ×2 (10:02→20:47)
[2017-06-23] MEDS: POTASSIUM CHLORIDE 10 MEQ CONTROLLED RELEASE TAB PO SCH ×3 (10:03→18:43)
[2017-06-23] MEDS: FUROSEMIDE 40 MG/4 ML VIAL IV PUSH SCH ×2 (10:03→18:43)
[2017-06-23] MEDS: HEPARIN SODIUM - SQ 10,000 UNITS/ML VIAL SQ SCH ×2 (10:03→20:48)
[2017-06-23] MEDS ORDERED: POTASSIUM CHLORIDE 10 MEQ CONTROLLED RELEASE TAB PO ONE (11:30)
--- NOTE | 2017-06-23 13:22 | PD.CARD.PN ---
Subjective Subjective Remarks no new complaints Objective Medications Current Medications Medications (Trade) Dose Ordered Sig/Rupali Route Start Time Stop Time Status Last Admin (NS Flush) 2 ml UNSCH PRN IV FLUSH 06/21/17 17:00 (NS Flush) 2 ml BID IV FLUSH 06/21/17 21:00 06/22/17 21:15 (Tylenol) 650 mg Q4H PRN PO 06/21/17 17:00 (Heparin Inj) 5,000 units Q12HR SQ 06/21/17 21:00 06/23/17 10:03 (Narcan Inj) 0.4 mg UNSCH PRN IV PUSH 06/21/17 17:00 (Jesika-Colace) 1 tab BID PO 06/21/17 21:00 06/23/17 10:02 (Milk Of Magnesia Liq) 30 ml Q12H PRN PO 06/21/17 17:00 (Senokot) 17.2 mg Q12H PRN PO 06/21/17 17:00 (Dulcolax Supp) 10 mg DAILY PRN RECTAL 06/21/17 17:00 (Lactulose Liq) 30 ml DAILY PRN PO 06/21/17 17:00 (Lasix Inj) 40 mg BID@,18 IV PUSH 06/21/17 18:00 06/23/17 10:03 (Aspirin Chew) 81 mg DAILY CHEW 06/22/17 13:00 06/23/17 10:02 (Coreg) 3.125 mg BID PO 06/22/17 13:00 06/23/17 10:02 (KCl) 30 meq TID PO 06/22/17 18:00 06/23/17 10:03 (Duoneb Neb) 1 ampule Q6HR NEB NEB 06/23/17 00:45 06/23/17 08:46 (Duoneb Neb) 1 ampule Q2HR NEB PRN NEB 06/23/17 00:45 Vital Signs / I&O Vital Signs Date Time Temp Pulse Resp B/P (MAP) Pulse Ox O2 Delivery O2 Flow Rate FiO2 06/23/17 08:49 97 21 06/23/17 07:15 98.1 74 20 113/69 (84) 96 06/23/17 04:05 77 06/23/17 04:00 97.2 77 18 91/57 (68) 95 06/23/17 01:14 96 06/23/17 00:12 78 06/23/17 00:00 97.7 79 18 100/63 (75) 96 06/22/17 20:01 91 06/22/17 20:00 97.2 90 16 111/61 (78) 95 06/22/17 16:00 93 06/22/17 16:00 98.1 86 18 117/73 (88) 96 06/22/17 14:50 84 113/64 (80) I/O 06/22/17 06/22/17 06/22/17 06/23/17 06/23/17 06/23/17 07:00 15:00 23:00 07:00 15:00 23:00 Intake Total 0 ml 480 ml 480 ml Balance 0 ml 480 ml 480 ml Intake Oral 0 ml 480 ml 480 ml # Voids 2 6 2 # Bowel Movements 0 0 Physical Exam alert + JVD Chest dcreased BS right base CV S1S2 RRR with S3 moderate edema tele: long run of VT this Am with low K+ Laboratory Laboratory Tests Test 06/23/17 04:04 Blood Urea Nitrogen 55 MG/DL Creatinine 1.87 MG/DL Random Glucose 114 MG/DL Calcium Level 8.5 MG/DL Magnesium Level 2.0 MG/DL Sodium Level 134 MEQ/L Potassium Level 3.2 MEQ/L Chloride Level 86 MEQ/L Carbon Dioxide Level 38.4 MEQ/L Anion Gap 10 MEQ/L Estimat Glomerular Filtration Rate 36 ML/MIN Assessment and Plan Problem List: (1) Hypokalemia ICD Codes: E87.6 - Hypokalemia Plan: stop metolazone, replete (2) Paroxysmal ventricular tachycardia ICD Codes: I47.2 - Ventricular tachycardia Plan: Replete K+. Might need AICD later. (3) CHF (congestive heart failure) ICD Codes: I50.9 - Heart failure, unspecified (4) Cardiac amyloidosis ICD Codes: E85.4 - Organ-limited amyloidosis; I43 - Cardiomyopathy in diseases classified elsewhere Status: Darian Evans MD June 23, 2017 13:22
--- NOTE | 2017-06-23 15:19 | HHI.PR ---
Subjective Remarks complains of feeling tired. denies any CP/palpitations/n/v Discussed w RN and shows me strip of Vtach x 2 mins. She did notify Dr. Monge and he replaced pt's potassium Objective Vitals Vital Signs Date Time Temp Pulse Resp B/P (MAP) Pulse Ox O2 Delivery O2 Flow Rate FiO2 06/23/17 11:30 97.7 84 20 122/70 (87) 97 06/23/17 11:15 79 06/23/17 08:49 97 21 06/23/17 08:00 86 06/23/17 07:15 98.1 74 20 113/69 (84) 96 06/23/17 04:05 77 06/23/17 04:00 97.2 77 18 91/57 (68) 95 06/23/17 01:14 96 06/23/17 00:12 78 06/23/17 00:00 97.7 79 18 100/63 (75) 96 06/22/17 20:01 91 06/22/17 20:00 97.2 90 16 111/61 (78) 95 06/22/17 16:00 93 06/22/17 16:00 98.1 86 18 117/73 (88) 96 I/O 06/22/17 06/22/17 06/22/17 06/23/17 06/23/17 06/23/17 07:00 15:00 23:00 07:00 15:00 23:00 Intake Total 0 ml 480 ml 480 ml Balance 0 ml 480 ml 480 ml Intake Oral 0 ml 480 ml 480 ml # Voids 2 6 2 # Bowel Movements 0 0 Result Diagram: 06/22/17 0655 06/23/17 0404 Imaging Last Impressions Thoracentesis Ultrasound 06/22/17 0000 Signed Impressions: Service Date/Time: Thursday, June 22, 2017 08:30 - CONCLUSION: Uncomplicated ultrasound guided thoracentesis. Fluid was sent for ordered studies. George Laughlin MD FACR Liver Ultrasound 06/22/17 0000 Signed Impressions: Service Date/Time: Thursday, June 22, 2017 09:51 - CONCLUSION: 1. Gallstone in gallbladder neck measuring up to about a centimeter in diameter. No biliary ductal dilatation. Mild ascites. Lei Glover MD Chest X-Ray 06/22/17 0000 Signed Impressions: Service Date/Time: Thursday, June 22, 2017 09:58 - CONCLUSION: Status post thoracentesis. No pneumothorax. George Laughlin MD FACR Lower Extremity Ultrasound 06/21/17 0000 Signed Impressions: Service Date/Time: June 17:05 - CONCLUSION: Normal examination. Lei Glover MD Objective Remarks laying in bed, on his right side. 3 out of 6 ejection murmur 1+ bilateral lower extremity edema Has gauze over postthoracentesis dressing over the right lung field posteriorly Abdomen appears soft, nondistended A/P Problem List: (1) CHF (congestive heart failure) ICD Code: I50.9 - Heart failure, unspecified (2) Cardiac amyloidosis ICD Code: E85.4 - Organ-limited amyloidosis; I43 - Cardiomyopathy in diseases classified elsewhere Status: Acute (3) Dyspnea on exertion ICD Code: R06.09 - Other forms of dyspnea Status: Acute (4) PND (paroxysmal nocturnal dyspnea) ICD Code: R06.00 - Dyspnea, unspecified; I43 - Cardiomyopathy in diseases classified elsewhere Status: Acute (5) Orthopnea ICD Code: R06.01 - Orthopnea Status: Acute Assessment and Plan Patient is a 71-year-old male with known primary history of amyloidosis, Aortic valve replacement, HTN, HLD, CHF who came into the hospital as advised by Dr. Galindo secondary to increasing shortness of breath and edema. Shortness of breath -Likely multifactorial from acute systolic congestive heart failure as well as pleural effusion possibly from amyloidosis and CHF -See treatment below Acute CHF systolic w/ CAD/paroxysmal ventricular tachycardia- might need AICD later per cards - continue Lasix IV , however metolazone has been held by cards due to hypokalemia, continue home Coreg - ECHO shows EF 30-35% - Fluid restriction. Replete K. -Cardiology following pt, will defer decision to cardiology to restart home Entresto and brillinta given CKD and possible paracentesis, respectively Hypokalemia, repleted Hyponatremia, mild -Monitor labs Acute kidney injury on chronic kidney disease stage III -Baseline1.2-1.3 -worsening -Avoid nephrotoxic -Monitor renal function closely Amyloidosis -Appreciate oncology recs Ascites Abdominal bloating -Hx ascites -Lasix IV, metolazone is on hold -May benefit with paracentesis if warranted. -US Abdomen Transaminitis -Possibly drug-induced -Monitor liver enzymes Discharge Planning replete K. Monitor TELE. cards following. d/c pending further work-up and clinical improvement. Ynes Aguilar MD June 23, 2017 15:19
[2017-06-23 15:37] LABS: AMYLASE BODY FLUID 34 U/L; AMYLASE BODY FLUID TYPE PLEURAL
[2017-06-23] MEDS: SODIUM CHLORIDE 0.9% FLUSH 10 ML FLUSH IV FLUSH SCH (20:50)
[2017-06-24] VITALS (12 sets, daily range): BP systolic 94–107; BP diastolic 52–63; PULSE 78–86; RESP 14–20; TEMP 97.3–98.4; O2SAT 95–98
[2017-06-24] MEDS: RESP: ALBUTEROL 2.5 MG/IPRATROPIUM 0.5 MG NEB (SCH) NEB ×3 (03:04→21:18)
[2017-06-24 06:32] LABS: BICARBONATE 35.5 MEQ/L (21.0-32.0); CALCIUM 9.2 MG/DL (8.5-10.1); CREATININE 1.67 MG/DL (0.60-1.30); MAGNESIUM 2.1 MG/DL (1.5-2.5)
[2017-06-24] MEDS: CARVEDILOL 3.125 MG TAB PO SCH ×2 (10:01→20:31)
[2017-06-24] MEDS: POTASSIUM CHLORIDE 10 MEQ CONTROLLED RELEASE TAB PO SCH ×2 (10:01→18:24)
[2017-06-24] MEDS: ASPIRIN 81 MG CHEW TAB CHEW SCH (10:01)
[2017-06-24] MEDS: DOCUSATE SODIUM 50 MG/SENNA 8.6 MG TAB PO SCH ×2 (10:01→20:32)
[2017-06-24] MEDS: HEPARIN SODIUM - SQ 10,000 UNITS/ML VIAL SQ SCH ×2 (10:01→20:32)
[2017-06-24] MEDS: FUROSEMIDE 40 MG/4 ML VIAL IV PUSH SCH ×2 (10:02→18:25)
[2017-06-24] MEDS: SODIUM CHLORIDE 0.9% FLUSH 10 ML FLUSH IV FLUSH SCH ×2 (10:03→20:31)
--- NOTE | 2017-06-24 11:38 | HHI.DCPOC ---
Discharge Care Plan Diagnosis: (1) Acute systolic (congestive) heart failure (2) Pleural effusion (3) Cardiac amyloidosis Goals to Promote Your Health * To prevent worsening of your condition and complications * To maintain your health at the optimal level Directions to Meet Your Goals Take your medications as prescribed Follow your dietary instruction Follow activity as directed Keep your appointments as scheduled Take your immunizations and boosters as scheduled If your symptoms worsen call your PCP, if no PCP go to Urgent Care Center or Emergency Room Smoking is Dangerous to Your Health. Avoid second hand smoke Call the 24-hour hour crisis hotline for domestic abuse at Bowen Fernandez MD June 24, 2017 11:38
[2017-06-24] MEDS ORDERED: POTA-163 PO (11:41)
--- NOTE | 2017-06-24 11:41 | HHI.DS ---
Discharge Summary Admission Date June 21, 2017 at 16:19 Discharge Date: June 25, 2017 Admitting Diagnosis Ascites; Edema; PND/Orthopnea (1) CHF (congestive heart failure) ICD Code: I50.9 - Heart failure, unspecified Status: Chronic (2) Cardiac amyloidosis ICD Code: E85.4 - Organ-limited amyloidosis; I43 - Cardiomyopathy in diseases classified elsewhere Status: Chronic (3) Dyspnea on exertion ICD Code: R06.09 - Other forms of dyspnea Status: Acute (4) PND (paroxysmal nocturnal dyspnea) ICD Code: R06.00 - Dyspnea, unspecified; I43 - Cardiomyopathy in diseases classified elsewhere Status: Acute (5) Orthopnea ICD Code: R06.01 - Orthopnea Status: Acute Procedures right sided thoracentesis Brief History - From Admission Patient is a 71-year-old male with known primary history of amyloidosis, Aortic valve replacement, HTN, HLD, CHF who came into the hospital as advised by Dr. Galindo secondary to increasing shortness of breath and edema. Patient states that he has noticed that he has increasing bilateral lower extremity edema left greater than the right. States that he has been an ongoing thing of increasing shortness of breath also for the past 2 weeks. Complains of generalized weakness, fatigue. States that his bilateral lower extremity edema usually comes down which is taking medication however this time he states it remains the same. States since September last year he has been going downhill as to his health issue. Patient also complains of abdominal bloating and is more concerned about it compared to his bilateral lower extremity swelling. Otherwise, denies any cough. Denies pain or discomfort, denies chest pain, palpitations, headaches, fevers, chills, nausea, vomiting, diarrhea. Denies any constipation, abdominal cramping, abdominal pain, hematuria, dysuria. CBC/BMP: 06/22/17 0655 06/24/17 0532 Significant Findings Laboratory Tests Test 06/21/17 13:41 06/21/17 16:00 06/22/17 06:55 06/22/17 09:44 Red Blood Count 3.96 MIL/MM3 (4.50-5.90) 3.84 MIL/MM3 (4.50-5.90) Red Cell Distribution Width 18.1 % (11.6-17.2) 18.0 % (11.6-17.2) Neutrophils (%) (Auto) 83.8 % (16.0-70.0) 82.2 % (16.0-70.0) Lymphocytes (%) (Auto) 5.9 % (9.0-44.0) 6.6 % (9.0-44.0) Monocytes (%) (Auto) 9.6 % (0.0-8.0) 10.1 % (0.0-8.0) Neutrophils # (Auto) 8.5 TH/MM3 (1.8-7.7) 7.8 TH/MM3 (1.8-7.7) Lymphocytes # (Auto) 0.6 TH/MM3 (1.0-4.8) 0.6 TH/MM3 (1.0-4.8) Monocytes # (Auto) 1.0 TH/MM3 (0-0.9) 1.0 TH/MM3 (0-0.9) Prothrombin Time 14.0 SEC (9.8-11.6) Blood Urea Nitrogen 45 MG/DL (7-18) 44 MG/DL (7-18) Creatinine 1.45 MG/DL (0.60-1.30) 1.38 MG/DL (0.60-1.30) Alkaline Phosphatase 141 U/L (45-117) Aspartate Amino Transf (AST/SGOT) 38 U/L (15-37) Total Bilirubin 1.3 MG/DL (0.2-1.0) 1.3 MG/DL (0.2-1.0) Sodium Level 134 MEQ/L (136-145) 134 MEQ/L (136-145) Potassium Level 3.2 MEQ/L (3.5-5.1) 3.3 MEQ/L (3.5-5.1) Chloride Level 85 MEQ/L (98-107) 87 MEQ/L (98-107) Carbon Dioxide Level 36.2 MEQ/L (21.0-32.0) 37.3 MEQ/L (21.0-32.0) Estimat Glomerular Filtration Rate 48 ML/MIN (>89) 51 ML/MIN (>89) B-Type Natriuretic Peptide 3801 PG/ML (0-100) Hemoglobin 12.9 GM/DL (13.0-17.0) Hematocrit 37.8 % (39.0-51.0) Total Protein 6.1 GM/DL (6.4-8.2) Pleural Fluid WBC 400 /MM3 (0-10) Pleural Fluid RBC 273366 /MM3 (0-0) Test 06/23/17 04:04 06/24/17 05:32 Blood Urea Nitrogen 55 MG/DL (7-18) 59 MG/DL (7-18) Creatinine 1.87 MG/DL (0.60-1.30) 1.67 MG/DL (0.60-1.30) Random Glucose 114 MG/DL (74-106) 112 MG/DL (74-106) Sodium Level 134 MEQ/L (136-145) 133 MEQ/L (136-145) Potassium Level 3.2 MEQ/L (3.5-5.1) Chloride Level 86 MEQ/L (98-107) 89 MEQ/L (98-107) Carbon Dioxide Level 38.4 MEQ/L (21.0-32.0) 35.5 MEQ/L (21.0-32.0) Estimat Glomerular Filtration Rate 36 ML/MIN (>89) 41 ML/MIN (>89) PE at Discharge Clear lung sounds bilaterally, unlabored breathing, on room air Hospital Course Patient was admitted, started on IV diuresis. Underwent right-sided thoracentesis with improvement in respiratory status. Cardiology was consulted and help comanage diuresis, patient did have an intermittent run of self resolving ventricular tachycardia with no further workup deemed necessary per cardiology. Patient's respiratory status returned to baseline. Patient has met maximal benefit from hospitalization and is clinically stable for discharge. Pt Condition on Discharge: Stable Discharge Disposition: Discharge Home Discharge Time: <= 30 minutes Discharge Instructions DIET: Follow Instructions for: Heart Healthy Diet Fluid Restrictions: 1500mL/daily Activities you can perform: Weight Bearing as Ray Follow up Referrals: Appointment for Follow Up @ ONCOLOGY/HEMATOLOGY Cardiology - 1 Week Cardiology with Nj Christina MD Cardiology @ [facility] Oncology/Hematology - 1 Week with Bhupinder Higgins MD PCP Follow-up - 1 Week PCP Follow-up with [facility] PCP Follow-up @ [facility] New Medications: Potassium Chloride ER (Potassium Chloride ER) 20 Meq Tab 20 MEQ PO BID for Electrolyte Replacement, #60 TAB 0 Refills Continued Medications: Aspirin (Aspirin) 81 Mg Chew 81 MG CHEW DAILY, TAB 0 Refills Carvedilol (Carvedilol) 3.125 Mg Tab 3.125 MG PO BID, #60 TAB 0 Refills Sacubitril-Valsartan (Entresto) 24-26 Mg Tab 1 TAB PO DAILY for Heart Failure, #30 TAB 0 Refills Ticagrelor (Brilinta) 90 Mg Tab 90 MG PO BID for Blood Clot Prevention, #60 TAB 0 Refills Torsemide (Torsemide) 20 Mg Tab 40 MG PO BID, #60 TAB 0 Refills Discontinued Medications: Potassium Chloride ER (Potassium Chloride ER) 10 Meq Cap 10 MEQ PO BID for Electrolyte Replacement, #60 CAP 0 Refills Bowen Fernandez MD June 24, 2017 11:41
--- NOTE | 2017-06-24 13:33 | PD.CARD.PN ---
Subjective Subjective Remarks No complaints. Consents to stay since CHF still decompensated Objective Medications Current Medications Medications (Trade) Dose Ordered Sig/Rupali Route Start Time Stop Time Status Last Admin (NS Flush) 2 ml UNSCH PRN IV FLUSH 06/21/17 17:00 (NS Flush) 2 ml BID IV FLUSH 06/21/17 21:00 06/24/17 10:03 (Tylenol) 650 mg Q4H PRN PO 06/21/17 17:00 (Heparin Inj) 5,000 units Q12HR SQ 06/21/17 21:00 06/24/17 10:01 (Narcan Inj) 0.4 mg UNSCH PRN IV PUSH 06/21/17 17:00 (Jesika-Colace) 1 tab BID PO 06/21/17 21:00 06/24/17 10:01 (Milk Of Magnesia Liq) 30 ml Q12H PRN PO 06/21/17 17:00 (Senokot) 17.2 mg Q12H PRN PO 06/21/17 17:00 (Dulcolax Supp) 10 mg DAILY PRN RECTAL 06/21/17 17:00 (Lactulose Liq) 30 ml DAILY PRN PO 06/21/17 17:00 (Aspirin Chew) 81 mg DAILY CHEW 06/22/17 13:00 06/24/17 10:01 (Coreg) 3.125 mg BID PO 06/22/17 13:00 06/24/17 10:01 (KCl) 30 meq TID PO 06/22/17 18:00 06/24/17 10:01 (Duoneb Neb) 1 ampule Q6HR NEB NEB 06/23/17 00:45 06/23/17 08:46 (Duoneb Neb) 1 ampule Q2HR NEB PRN NEB 06/23/17 00:45 (Brilinta) 90 mg BID PO 06/24/17 11:45 (Lasix Inj) 80 mg BID@,18 IV PUSH 06/24/17 18:00 UNV Vital Signs / I&O Vital Signs Date Time Temp Pulse Resp B/P (MAP) Pulse Ox O2 Delivery O2 Flow Rate FiO2 06/24/17 12:20 97.9 82 20 94/53 (67) 96 06/24/17 08:00 86 06/24/17 08:00 96 Room Air 21 06/24/17 07:15 98.4 79 20 96/54 (68) 95 06/24/17 05:30 97.3 81 18 101/54 (70) 96 06/24/17 04:10 79 06/24/17 00:01 80 06/24/17 00:00 97.3 78 18 107/52 (70) 96 06/23/17 20:15 91 06/23/17 20:11 99 21 06/23/17 20:00 97.9 84 18 114/68 (83) 97 06/23/17 15:15 97.5 83 20 102/58 (73) 95 I/O 06/23/17 06/23/17 06/23/17 06/24/17 06/24/17 06/24/17 07:00 15:00 23:00 07:00 15:00 23:00 Intake Total 480 ml 1320 ml 240 ml Balance 480 ml 1320 ml 240 ml Intake Oral 480 ml 1320 ml 240 ml # Voids 2 5 3 # Bowel Movements 0 1 Physical Exam alert + JVD Chest dcreased BS right base CV S1S2 RRR with S3 moderate edema tele: no further VT Laboratory Laboratory Tests Test 06/24/17 05:32 Blood Urea Nitrogen 59 MG/DL Creatinine 1.67 MG/DL Random Glucose 112 MG/DL Calcium Level 9.2 MG/DL Magnesium Level 2.1 MG/DL Sodium Level 133 MEQ/L Potassium Level 4.6 MEQ/L Chloride Level 89 MEQ/L Carbon Dioxide Level 35.5 MEQ/L Anion Gap 9 MEQ/L Estimat Glomerular Filtration Rate 41 ML/MIN Assessment and Plan Problem List: (1) Hypokalemia ICD Codes: E87.6 - Hypokalemia Plan: resolved. Monitor lab daily (2) Paroxysmal ventricular tachycardia ICD Codes: I47.2 - Ventricular tachycardia Plan: no further episodes (3) CHF (congestive heart failure) ICD Codes: I50.9 - Heart failure, unspecified Plan: With edema/ascites/right pleural effusion (4) Cardiac amyloidosis ICD Codes: E85.4 - Organ-limited amyloidosis; I43 - Cardiomyopathy in diseases classified elsewhere Status: Acute Assessment and Plan not diuresing well. Increase lasix to 80mg IVP bid Darian Monge MD June 24, 2017 13:33
[2017-06-24] MEDS ORDERED: POTASSIUM CHLORIDE 10 MEQ CONTROLLED RELEASE TAB PO ONE (14:30)
[2017-06-24] MEDS: TICAGRELOR 90 MG TAB PO SCH ×2 (14:55→20:31)
--- NOTE | 2017-06-24 15:10 | HHI.PR ---
Subjective Remarks Nursing denies any deterioration since last night. Patient has no new complaints. Says his shortness of breath is resolved. Says that his lower extremity edema is also improved, the family member at the bedside says his legs look pretty good compared to what they usually are. Patient admits that his abdomen is more distended today but says that his abdominal distention fluctuates in intensity and he is not surprised by today's presentation Objective Vital Signs Date Time Temp Pulse Resp B/P (MAP) Pulse Ox O2 Delivery O2 Flow Rate FiO2 06/24/17 14:11 96 06/24/17 12:20 97.9 82 20 94/53 (67) 96 06/24/17 08:00 86 06/24/17 08:00 96 Room Air 21 06/24/17 07:15 98.4 79 20 96/54 (68) 95 06/24/17 05:30 97.3 81 18 101/54 (70) 96 06/24/17 04:10 79 06/24/17 00:01 80 06/24/17 00:00 97.3 78 18 107/52 (70) 96 06/23/17 20:15 91 06/23/17 20:11 99 21 06/23/17 20:00 97.9 84 18 114/68 (83) 97 06/23/17 15:15 97.5 83 20 102/58 (73) 95 I/O 06/23/17 06/23/17 06/23/17 06/24/17 06/24/17 06/24/17 07:00 15:00 23:00 07:00 15:00 23:00 Intake Total 480 ml 1320 ml 240 ml Balance 480 ml 1320 ml 240 ml Intake Oral 480 ml 1320 ml 240 ml # Voids 2 5 3 # Bowel Movements 0 1 Result Diagram: 06/22/17 0655 06/24/17 0532 Objective Remarks Moderate aeration in bilateral lung [place], no crackles heard 4 out of 6 ejection murmur w/ S3 gallop heard Mild bilateral lower extremity edema, left greater than right but near baseline per patient and family member Abdomen appears soft, mod distended A/P Assessment and Plan Patient is a 71-year-old male with known primary history of amyloidosis, Aortic valve replacement, HTN, HLD, CHF who came into the hospital as advised by Dr. Galindo secondary to increasing shortness of breath and edema. Shortness of breath -Likely multifactorial from acute systolic congestive heart failure as well as pleural effusion possibly from amyloidosis and CHF -See treatment below Acute CHF systolic - continue Lasix IV per cardiology -Continue home Coreg and Entresto w/ CAD/paroxysmal ventricular tachycardia -Resume Brilinta -- might need AICD later per cards pleural effusion - s/p right sided thoracentesis, likely 2/2 chf and/or amyloidosis CKD -Minimize nephrotoxic Amyloidosis -Appreciate oncology recs Ascites Abdominal bloating -Hx ascites -Chronic, continue Lasix as above Transaminitis -Possibly drug-induced -Monitor liver enzymes Discharge Planning Clearance per cardiology for discharge Bowen Fernandez MD June 24, 2017 15:10
[2017-06-25] VITALS (7 sets, daily range): BP systolic 96–142; BP diastolic 59–61; PULSE 72–80; RESP 14–18; TEMP 97.4–98.2; O2SAT 96–98
[2017-06-25] MEDS: RESP: ALBUTEROL 2.5 MG/IPRATROPIUM 0.5 MG NEB (SCH) NEB ×2 (03:48→09:00)
--- NOTE | 2017-06-25 08:20 | PD.CARD.PN ---
Subjective Subjective Remarks Denies dyspnea, PND, dizziness, CP, palpitations. Slept fairly well. Objective Medications Item Value Date Time Furosemide 80 mg 06/24/17 1800 (Lasix Inj) BID@/IV PUSH 06/24/171824 Potassium Chloride 20 meq 06/24/17 1800 (KCl) TID/PO 06/24/171823 Ticagrelor 90 mg 06/24/17 1145 (Brilinta) BID/PO 06/24/172030 Aspirin 81 mg 06/22/17 1300 (Aspirin Chew) DAILY/CHEW 06/24/17 100 Carvedilol 3.125 mg 06/22/17 1300 (Coreg) BID/PO 06/24/172030 Heparin Sodium 5,000 units 06/21/17 2100 (Porcine) Q12HR/SQ 06/24/172031 (Heparin Inj) Current Medications Medications (Trade) Dose Ordered Sig/Rupali Route Start Time Stop Time Status Last Admin (NS Flush) 2 ml UNSCH PRN IV FLUSH 06/21/17 17:00 (NS Flush) 2 ml BID IV FLUSH 06/21/17 21:00 06/24/17 20:31 (Tylenol) 650 mg Q4H PRN PO 06/21/17 17:00 (Heparin Inj) 5,000 units Q12HR SQ 06/21/17 21:00 06/24/17 20:32 (Narcan Inj) 0.4 mg UNSCH PRN IV PUSH 06/21/17 17:00 (Jesika-Colace) 1 tab BID PO 06/21/17 21:00 06/24/17 20:32 (Milk Of Magnesia Liq) 30 ml Q12H PRN PO 06/21/17 17:00 (Senokot) 17.2 mg Q12H PRN PO 06/21/17 17:00 (Dulcolax Supp) 10 mg DAILY PRN RECTAL 06/21/17 17:00 (Lactulose Liq) 30 ml DAILY PRN PO 06/21/17 17:00 (Aspirin Chew) 81 mg DAILY CHEW 06/22/17 13:00 06/24/17 10:01 (Coreg) 3.125 mg BID PO 06/22/17 13:00 06/24/17 20:31 (Duoneb Neb) 1 ampule Q6HR NEB NEB 06/23/17 00:45 06/23/17 08:46 (Duoneb Neb) 1 ampule Q2HR NEB PRN NEB 06/23/17 00:45 (Brilinta) 90 mg BID PO 06/24/17 11:45 06/24/17 20:31 (Lasix Inj) 80 mg BID@09,18 IV PUSH 06/24/17 18:00 06/24/17 18:25 (KCl) 20 meq TID PO 06/24/17 18:00 06/24/17 18:24 Vital Signs / I&O Vital Signs Date Time Temp Pulse Resp B/P (MAP) Pulse Ox O2 Delivery O2 Flow Rate FiO2 06/25/17 04:29 97.4 74 14 104/59 (74) 96 06/25/17 00:29 97.9 74 14 96/61 (73) 97 06/24/17 20:29 97.8 80 14 101/57 (72) 97 06/24/17 20:00 Room Air 06/24/17 15:45 96 21 06/24/17 15:30 98.0 81 20 104/63 (77) 98 06/24/17 14:11 96 06/24/17 12:20 97.9 82 20 94/53 (67) 96 I/O 06/24/17 06/24/17 06/24/17 06/25/17 06/25/17 06/25/17 07:00 15:00 23:00 07:00 15:00 23:00 Intake Total 240 ml 600 ml Balance 240 ml 600 ml Intake Oral 240 ml 600 ml # Voids 3 2 Physical Exam GENERAL: Well developed, well nourished. No acute distress. HEENT: Jugular venous pressure is normal. CHEST: Lungs clear to auscultation bilaterally. Unlabored respiratory effort. CARDIAC: Regular rate and rhythm without S3, S4. II/ systolic murmur lower left sternal border and apex. ABDOMEN: Soft, nontender, no hepatosplenomegaly. Bowel sounds present. EXTREMITIES: No clubbing, cyanosis. 1-2 + pretibial edema. Laboratory Laboratory Tests Test 06/25/17 06:45 Assessment and Plan Problem List: (1) CHF (congestive heart failure) ICD Codes: I50.9 - Heart failure, unspecified Status: Chronic Plan: Symptomatically much improved since admission. EF 30-35% by echo. Patient unsure of his diuretic regimen at home; I believe he takes furosemide 80 mg qd and metolazone 5 mg qd. REC OK to discharge home today from my standpoint if potassium OK this morning and renal indices stable, same home medications, f/u with me this Sunday (2) Paroxysmal ventricular tachycardia ICD Codes: I47.2 - Ventricular tachycardia Plan: Stable overnight. No further VT. Recommend medical therapy. Continue beta irma. (3) Cardiac amyloidosis ICD Codes: E85.4 - Organ-limited amyloidosis; I43 - Cardiomyopathy in diseases classified elsewhere Status: Chronic Code Status full code Discussed Condition With patient Problem Qualifiers (1) CHF (congestive heart failure): Qualified Codes: I50.23 - Acute on chronic systolic (congestive) heart failure Nj Christina MD June 25, 2017 08:20
[2017-06-25 08:33] LABS: BICARBONATE 36.4 MEQ/L (21.0-32.0); CALCIUM 8.9 MG/DL (8.5-10.1); CREATININE 1.4 MG/DL (0.60-1.30); MAGNESIUM 1.9 MG/DL (1.5-2.5)
[2017-06-25] MEDS: HEPARIN SODIUM - SQ 10,000 UNITS/ML VIAL SQ SCH (08:50)
[2017-06-25] MEDS: POTASSIUM CHLORIDE 10 MEQ CONTROLLED RELEASE TAB PO SCH (08:50)
[2017-06-25] MEDS: FUROSEMIDE 40 MG/4 ML VIAL IV PUSH SCH (08:50)
[2017-06-25] MEDS: SODIUM CHLORIDE 0.9% FLUSH 10 ML FLUSH IV FLUSH SCH (08:51)
[2017-06-25] MEDS: ASPIRIN 81 MG CHEW TAB CHEW SCH (08:51)
[2017-06-25] MEDS: DOCUSATE SODIUM 50 MG/SENNA 8.6 MG TAB PO SCH (08:51)
[2017-06-25] MEDS: CARVEDILOL 3.125 MG TAB PO SCH (08:51)
[2017-06-25] MEDS: TICAGRELOR 90 MG TAB PO SCH (08:51)
[2017-06-25] MEDS ORDERED: METO2.5T PO (12:06)
[2017-06-25] MEDS ORDERED: FURO80TA PO (12:06)
== END 2017-06-25 13:21 | DRG 291 ==
LOC: NEPE 12:32 → NEDA 16:19 → N04B 20:45
PROVIDERS: ADMIT Hospitalist; ATTEND Hospitalist
PROC: 0W993ZZ Drainage of Right Pleural Cavity, Percutaneous Approach (ICD-10-PCS; principal; 2017-06-22)
DX: I13.0 Hypertensive heart and chronic kidney disease with heart failure and stage 1 through stage 4 chronic kidney disease, or unspecified chronic kidney disease (principal); I50.23 Acute on chronic systolic (congestive) heart failure; N17.9 Acute kidney failure, unspecified; I47.2 Ventricular tachycardia; R18.8 Other ascites; E85.4 Organ-limited amyloidosis; J91.8 Pleural effusion in other conditions classified elsewhere; N18.3 Chronic kidney disease, stage 3 (moderate); E87.1 Hypo-osmolality and hyponatremia; I43 Cardiomyopathy in diseases classified elsewhere; Z95.3 Presence of xenogenic heart valve; E87.6 Hypokalemia; E78.5 Hyperlipidemia, unspecified; R74.0 Nonspecific elevation of levels of transaminase and lactic acid dehydrogenase [LDH]; I25.10 Atherosclerotic heart disease of native coronary artery without angina pectoris; Z95.5 Presence of coronary angioplasty implant and graft; Z85.79 Personal history of other malignant neoplasms of lymphoid, hematopoietic and related tissues; Z87.891 Personal history of nicotine dependence
CPT/HCPCS: 32555; 71045; 76705; 80048; 80053; 82150; 82945; 83615; 83735; 83880; 83986; 84157; 85025; 85610; 85730; 87070; 87205; 89051; 93005; 93306; 93970; 94640; 94664; 96374; C1729; J1644; J1940